=== PATIENT | female | born 1975 | race Caucasian/White ===

== ENCOUNTER 2017-02-04 21:09 | Emergency (ER) | payer OTHER, MEDICARE ==
[2017-02-04 21:46] VITALS: BP 120/70
--- NOTE | 2017-02-04 21:59 | ED INFLUENZA/URI COMPLAINT ---
History of Present Illness General Chief Complaint: General Adult Stated Complaint: ?PER PT DX WITH FLU, L SIDED LUNG PAIN Source: patient Exam Limitations: no limitations Vital Signs & Intake/Output Vital Signs & Intake/Output Vital Signs Date Time Temp Pulse Resp B/P Pulse O2 O2 Flow FiO2 Ox Delivery Rate 02/04 2234 Room Air 02/04 2157 77 20 141/88 94 02/04 2146 97.8 80 16 120/70 98 Room Air Room Air ED Intake and Output 02/05 0000 02/04 1200 Intake Total 0 Output Total Balance 0 Intake, Oral 0 Allergies Coded Allergies: MDX - PCN (penicillin) (PCN (PENICILLIN)) (HIVES 08/25/13) Triage Note: PT TO TRIAGE FOR LEFT BACK WITH BREATHING, STARTING TODAY. PT WAS DX WITH FLU AND HAS BEEN COUGHING. Triage Nurses Notes Reviewed? yes Onset: Gradual Duration: constant Severity: moderate Severity Numbers: 5 : No Patient currently breastfeeds: No HPI: Patient is a 41-year-old female with a past medical history of seizures who presents emergency room stating that yesterday she was diagnosed with influenza and was she was prescribed Tamiflu and Zofran for her symptoms and Symbicort for her cough. Her was also prophylactically treated. Patient presents emergency room stating that she feels no better patient also has been prescribed Flonase for her nasal congestion. Patient does not smoke. Patient is concerned due to multiple episodes of coughing that she has rib pain. Patient denies any current fevers but does have chills. Denies any hemoptysis chest pain ARM pain nausea vomiting leg swelling history of DVT PE history of recent travel or recent surgery or oral contraceptive use (EULALIO BENZ,EVANGELINA) Reconcile Medications Albuterol Sulfate (Ventolin Hfa) 90 MCG HFA.AER.AD 2 PUF INH Q4-6 PRN PRN COUGH Benzonatate (Tessalon Perle) 100 MG CAPSULE 1 CAP PO TID PRN COUGH Meloxicam (Mobic) 15 MG TABLET 1 TAB PO DAILY PAIN/INFLAMMATION Methylprednisolone. (Medrol) 4 MG TAB.DS.PK 1 DP PO AD INFLAMMATION 6 on day 1 then reduce by one tablet daily until gone (ALLYN MEDRANO,TALAT Page) Past History Travel History Traveled to [place] past 21 day No Medical History Any Pertinent Medical History? 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 No (EVANGELINA GLOVER) Review of Systems Review of Systems Constitutional: Reports: see HPI, chills. EENTM: Reports: see HPI, nasal congestion. Respiratory: Reports: see HPI, cough. Cardiovascular: Reports: no symptoms. GI: Reports: see HPI. Genitourinary: Reports: no symptoms. Musculoskeletal: Reports: no symptoms. Skin: Reports: no symptoms. Neurological/Psychological: Reports: no symptoms. Hematologic/Endocrine: Reports: no symptoms. Immunologic/Allergic: Reports: no symptoms. All Other Systems: Reviewed and Negative (EVANGELINA GLOVER) Physical Exam Physical Exam General Appearance: well developed/nourished, no apparent distress, alert Ears, Nose, Throat: moist mucous membrane, hearing grossly normal, Tympanic normal, pharynx normal, nasal congestion, nasal drainage Respiratory: chest non-tender, no respiratory distress, rhonchi Comments: Well-developed well-nourished person in no acute distress HEENT: extraocular motion intact, no nystagmus. Pupils equally round and reactive to light and accommodation. Nose is atraumatic. External auditory canal and Tympanic membranes clear. Pharynx normal. No swelling or edema. Neck: Supple, no lymphadenopathy, normal range of motion without pain or tenderness Back: Nontender, no CVA tenderness. Cardiovascular: Regular rate and rhythms no murmurs rubs or gallops, normal JVP Abdomen: Soft, nontender nondistended, no appreciable organomegaly. Normal bowel sounds. No ascites Extremity: No edema, no calf tenderness to palpation, normal and equal pulses. Neuro: Alert oriented x3, motor sensory normal, Skin: No appreciable rash on exposed skin, skin is warm and dry. Psych: Mood and affect is normal, memory and judgment is normal. Core Measures Severe Sepsis Present: No Septic Shock Present: No (EVANGELINA GLOVER) Progress Differential Diagnosis: influenza, meningitis, neutropenia, otitis, pneumonia, pharyngitis, sinusitis Plan of Care: Orders Procedure Date/time Status HUMAN BETA HCG SCREEN 02/05 2124 Complete Laboratory Tests 02/04/172202: Total Beta HCG NEGATIVE Patient was afebrile nontoxic appearing No respiratory distress patient has positive flu I discussed supportive treatment with patient Patient is able tolerate by mouth Upon discharge patient looks well no apparent distress and will comply with discharge instructions and had no questions (EVANGELINA GLOVER) Initial ED EKG: none (EVANGELINA GLOVER) Departure Departure Disposition: HOME OR SELF CARE Condition: Stable Clinical Impression Primary Impression: Influenza Referrals: VITALIY MEDLEY MD (PCP/Family) Additional Instructions: As discussed began drinking plain water for hydration begin the prescription MELOXICAM For pain and inflammation. Continue her previously prescribed Tamiflu for the full course and Zofran if needed for nausea. Begin the prescription for Tessalon Perles for cough Medrol Dosepak for inflammation and Ventolin for improvement of breathing. If no better on Tuesday follow-up with her primary care doctor. If symptoms worsen return to the emergency room. Begin Tylenol for fevers prescription awaiting at [facility] pharmacy Departure Forms: Customer Survey General Discharge Information Prescriptions: Current Visit Scripts Benzonatate (Tessalon Perle) 1 CAP PO TID PRN COUGH #21 CAP Methylprednisolone. (Medrol) 1 DP PO AD #1 DP 6 on day 1 then reduce by one tablet daily until gone Albuterol Sulfate (Ventolin Hfa) 2 PUF INH Q4-6 PRN PRN COUGH #1 INHAL Meloxicam (Mobic) 1 TAB PO DAILY #15 TAB (EVANGELINA GLOVER) PA/MECHANIC'S ASSISTANT Co-Sign Statement Statement: ED Attending supervision documentation- [] I saw and evaluated the patient. I have also reviewed all the pertinent lab results and diagnostic results. I agree with the findings and the plan of care as documented in the PA's/MECHANIC'S ASSISTANT's documentation. [x] I have reviewed the ED Record and agree with the PA's/MECHANIC'S ASSISTANT's documentation. [] Additions or exceptions (if any) to the PAs/MECHANIC'S ASSISTANT's note and plan are summarized below: [] (ALLYN MEDRANO,TALAT Page)
[2017-02-04] MEDS ORDERED: MOBIC15 M1 PO (22:36)
[2017-02-04] MEDS ORDERED: TESSALON PERLE100 M1 PO (22:36)
[2017-02-04] MEDS ORDERED: MEDROL4 M2 PO (22:36)
[2017-02-04] MEDS ORDERED: VENTOLIN HFA18 GM INH (22:36)
== END 2017-02-04 22:56 ==
LOC: ERH 21:09
DX: J11.1 Influenza due to unidentified influenza virus with other respiratory manifestations (principal)